=== PATIENT | male | born 1955 | race African-American/Black ===

== ENCOUNTER 2021-08-12 19:25 | Inpatient (IN) | payer BC ==
[2021-08-12 20:55] VITALS: BMI 23.8
[2021-08-12] MEDS ORDERED: MAGNESIUM HYDROX 2400MG/30ML ORAL SUSPENSION 30 ML CUP PO PRN (21:44)
[2021-08-12] MEDS ORDERED: P-EPHED 60MG/TRIPROLIDI 2.5MG TABLET PO PRN (21:44)
[2021-08-12] MEDS ORDERED: MAG HYDROX/AL HYDROX/SIMETH 30 ML UNIT-DOSE CUP PO PRN (21:44)
[2021-08-12] MEDS ORDERED: IBUPROFEN 400 MG TABLET (FP) PO PRN (21:44)
[2021-08-12] MEDS ORDERED: MAGNESIUM CITRATE 300 ML BOTTLE PO PRN (21:44)
[2021-08-12] MEDS ORDERED: DICYCLOMINE HCL 10 MG CAPSULE PO PRN (21:44)
[2021-08-12] MEDS ORDERED: LORazepam 1 MG TABLET PO PRN (21:44)
[2021-08-12] MEDS ORDERED: MENTHOL/PHENOL 1 EACH UD MM PRN (21:44)
[2021-08-12] MEDS ORDERED: ACETAMINOPHEN 325 MG TABLET (FP) PO PRN ×2 (21:44)
[2021-08-12] MEDS ORDERED: BISMUTH SUBSALICYLATE 524 MG/30 ML PO PRN (21:44)
[2021-08-12] MEDS ORDERED: ONDANSETRON *ODT* 4 MG TABLET SL PRN (21:44)
[2021-08-12] MEDS ORDERED: METHOCARBAMOL 500 MG TABLET PO PRN (21:44)
[2021-08-12] MEDS ORDERED: guaiFENesin 200 MG/10 ML 10 ML UNIT-DOSE CUPS PO PRN (21:44)
[2021-08-12] MEDS ORDERED: LORazepam 2 MG TABLET ONE (22:35)
[2021-08-12] MEDS: LORazepam 2 MG TABLET PO SCH (22:36)
[2021-08-13] MEDS: ASPIRIN 81 MG CHEWABLE TABLETS PO SCH ×2 (00:50→10:24)
[2021-08-13] MEDS: amLODIPine BESYLATE 10 MG TABLET (FP) PO SCH ×2 (00:50→10:24)
[2021-08-13] MEDS: THIAMINE HCL 100 MG TABLET (FP) PO SCH ×2 (00:51→22:26)
[2021-08-13] MEDS: MELATONIN 5 MG TABLETS PO SCH ×2 (00:51→22:27)
[2021-08-13] MEDS: LORazepam 2 MG TABLET PO SCH ×4 (06:15→22:26)
[2021-08-13] MEDS: PRENATAL VITAMINS W/ FOLIC ACID TABLET (FP) PO SCH (10:24)
[2021-08-13] MEDS: METOPROLOL TARTRATE 25 MG TABLET (FP) PO SCH (11:55)
[2021-08-13] MEDS: BICTEGRAV/EMTRICIT/TENOFOV (BIKTARVY) 50-200-25 MG TABLET PO SCH (11:55)
[2021-08-13 13:46] LABS: HEMATOCRIT 33.5 % (35.4-49); MCH 24.6 pg (25.7-33.7); MCHC 32.8 g/dl (32.0-35.9); MEAN PLT VOLUME 8.3 fl (7.5-11.1); PLATELET COUNT 190 10^3/uL (134-434); RBC 4.46 M/mm3 (4.00-5.60); RDW 19.1 % (11.9-15.9)
[2021-08-13 13:58] LABS: BLOOD UREA NITROGEN 17.5 mg/dL (7-18); CALCIUM 8.7 mg/dL (8.5-10.1)
[2021-08-13 14:01] LABS: CREATININE 1.3 mg/dL (0.55-1.3)
[2021-08-13 14:02] LABS: BILIRUBIN,TOTAL 0.7 mg/dL (0.2-1); TOT PROT 7.3 g/dl (6.4-8.2)
[2021-08-14] MEDS: LORazepam 1 MG TABLET PO SCH ×4 (05:17→22:20)
[2021-08-14] MEDS: BICTEGRAV/EMTRICIT/TENOFOV (BIKTARVY) 50-200-25 MG TABLET PO SCH (07:58)
[2021-08-14] MEDS: PRENATAL VITAMINS W/ FOLIC ACID TABLET (FP) PO SCH (10:33)
[2021-08-14] MEDS: METOPROLOL TARTRATE 25 MG TABLET (FP) PO SCH (10:33)
[2021-08-14] MEDS: amLODIPine BESYLATE 10 MG TABLET (FP) PO SCH (10:33)
[2021-08-14] MEDS: ASPIRIN 81 MG CHEWABLE TABLETS PO SCH (10:33)
[2021-08-14] MEDS: THIAMINE HCL 100 MG TABLET (FP) PO SCH (22:21)
[2021-08-14] MEDS: MELATONIN 5 MG TABLETS PO SCH (22:21)
[2021-08-15] MEDS ORDERED: LORazepam 0.5 MG TABLET PO PRN
[2021-08-15] MEDS: LORazepam 0.5 MG TABLET PO SCH ×4 (05:18→22:27)
[2021-08-15] MEDS: BICTEGRAV/EMTRICIT/TENOFOV (BIKTARVY) 50-200-25 MG TABLET PO SCH (08:16)
[2021-08-15] MEDS: PRENATAL VITAMINS W/ FOLIC ACID TABLET (FP) PO SCH (10:21)
[2021-08-15] MEDS: ASPIRIN 81 MG CHEWABLE TABLETS PO SCH (10:21)
[2021-08-15] MEDS: amLODIPine BESYLATE 10 MG TABLET (FP) PO SCH (10:21)
[2021-08-15] MEDS: METOPROLOL TARTRATE 25 MG TABLET (FP) PO SCH (10:22)
[2021-08-15] MEDS ORDERED: PENICILLIN G BENZATHINE 2,400,000 UNIT/4 ML PFS IM ONE (15:53)
[2021-08-15] MEDS: MELATONIN 5 MG TABLETS PO SCH (22:27)
[2021-08-15] MEDS: THIAMINE HCL 100 MG TABLET (FP) PO SCH (22:27)
[2021-08-16] MEDS ORDERED: LORazepam 0.5 MG TABLET PO ONE (05:00)
[2021-08-16] MEDS: BICTEGRAV/EMTRICIT/TENOFOV (BIKTARVY) 50-200-25 MG TABLET PO SCH (07:06)
[2021-08-16 09:30] VITALS: BP 110/77; PULSE 106; TEMP 97.5
== END 2021-08-16 09:57 | disposition home or self-care (01) | DRG 775 ==
LOC: YASAS 19:25 → Y3N 22:46
PROVIDERS: ADMIT Allergy & Immunology; ATTEND Allergy & Immunology
PROC: HZ2ZZZZ Detoxification Services for Substance Abuse Treatment (ICD-10-PCS; principal; 2021-08-12)
DX: F10.230 Alcohol dependence with withdrawal, uncomplicated (principal); F19.24 Other psychoactive substance dependence with psychoactive substance-induced mood disorder; Z21 Asymptomatic human immunodeficiency virus [HIV] infection status; E88.09 Other disorders of plasma-protein metabolism, not elsewhere classified; I48.91 Unspecified atrial fibrillation; I10 Essential (primary) hypertension; D64.9 Anemia, unspecified; K21.9 Gastro-esophageal reflux disease without esophagitis; A53.0 Latent syphilis, unspecified as early or late; Z86.19 Personal history of other infectious and parasitic diseases; Z86.59 Personal history of other mental and behavioral disorders; Z85.118 Personal history of other malignant neoplasm of bronchus and lung; Z85.828 Personal history of other malignant neoplasm of skin; Z89.021 Acquired absence of right finger(s); Z88.1 Allergy status to other antibiotic agents; Z88.2 Allergy status to sulfonamides; Z91.041 Radiographic dye allergy status
CPT/HCPCS: 36415; 80053; 85027; 86593; 86780; 93005; 93010; C9803; U0003; U0005